=== PATIENT | female | born 1950 | race Caucasian/White ===

== ENCOUNTER 2019-03-21 01:56 | Inpatient (IN) | payer OTHER ==
[~2019-03-21] VITALS: Ht 170.2 cm; Wt 71.7 kg
[2019-03-21] VITALS (7 sets, daily range): BP systolic 143–212; BP diastolic 63–130
[~2019-03-21 01:56] MED LIST: ALPRAZOLAM1 M1 PO; AMBIEN CR 6.26.25 MG; AMBIEN CR 6.26.25 MG PO; AMITIZA 24 MCG24 MC1 PO; AZOR 10-40 MG1 EACH PO; BYSTOLIC10 MG PO; CEFDINIR300 MG PO; CLONIDINE HCL0.2 M2 PO; CYMBALTA30 MG PO; CYMBALTA60 MG PO; CYTOMEL 25 MCG25 MC1; ELMIRON PO; FIORICET PO; GABAPENTIN100 MG PO; HYDROCHLOROTHIA25 M1 PO; KLONOPIN1 MG; LABETALOL 100100 MG PO; LISINOPRIL20 MG PO; LUNESTA1 MG; MACROBID 100 M100 M1 PO; MOTRIN 600 MG600 M1 OR; NEXIUM40 MG PO; NORCO 5-325 TA1 EACH PO; PHENAZOPYRIDIN100 M1 PO; PHENERGAN 25 MG25 M1 PO; PHENERGAN12.5 M1 RC; PHENERGAN25 M2 RC; PHENERGAN25 M2 RE; RESTASIS1 EACH OP; SIMVASTATIN80 MG PO; TESSALON PERLE100 MG PO; TRAMADOL 50 MG50 MG PO; TYLENOL325 MG PO; ULTRAM 50MG TAB50 MG PO; XANAX 1 MG TABLE1 MG PO; ZOFRAN ODT4 MG PO
[2019-03-21 02:45] LABS: ABSOLUTE NEUTROPHILS 3.5 thou/uL (1.4-8.2); BASOPHILS 0.4 % (0.0-2.0); EOSINOPHILS 3.3 % (0.0-3.0); HEMOGLOBIN 14.2 gm/dL (12.0-15.0); LYMPHOCYTES 35.7 % (24.0-44.0); MCH 30.4 pg (26.0-34.0); MCHC 34.5 g/dL (28.0-37.0); MCV 88.2 fL (80.0-100.0); MONOCYTES 10.6 % (1.0-8.0); PLATELET COUNT 242 thou/uL (150-400); RBC 4.66 mil/uL (4.20-5.00); RDW 13.7 % (10.5-14.5)
[2019-03-21 02:47] LABS: CALCIUM 10.7 mg/dL (8.5-10.1); POTASSIUM 3.1 mmol/L (3.5-5.1)
[2019-03-21 02:53] LABS: ALBUMIN 4.8 g/dL (3.4-5.0); TOTAL BILIRUBIN 0.5 mg/dL (<0.1-1.0); TOTAL PROTEIN 9.3 g/dL (6.4-8.2)
[2019-03-21 04:08] LABS: URINE BILIRUBIN NEGATIVE (Negative); URINE BLOOD TRACE (Negative); URINE CLARITY CLEAR; URINE COLOR YELLOW; URINE GLUCOSE-RANDOM* NEGATIVE (Negative); URINE KETONES NEGATIVE (Negative); URINE LEUKOCYTES NEGATIVE (Negative); URINE NITRITE NEGATIVE (Negative); URINE PROTEIN (DIPSTICK) TRACE (Negative); URINE SPECIFIC GRAVITY 1.015 (1.005-1.035); URINE UROBILINOGEN 0.2 E.U./dl (0.2-1.0)
--- NOTE | 2019-03-21 18:39 | NUR ---
PT ARRIVED TO UNIT FROM ED DURING SHIFT CHANGE. PT IS ALERT AND ORIENTED X4, MONITORED ON TELEL AND ABLE TO MAINTAIN 02 SAT >90 ON RA. DENIES PAIN AND SOA. EVEN NON LABORED BREATHING. PATIENT ABLE TO EAT AND DENIES N/V. ASSESSMENT CHARTED. BP ELEVATED. ON RECHECK BEFORE CURTAIN INSPECTOR BP WAS RESOLVED. PT HAS BEEN UPDATED ON POC, DENIES ANY FURTHER QUESTIONS OR CONCERNS AT THIS TIME. WILL CONTINUE TO MOITOR.
--- NOTE | 2019-03-22 02:13 | NUR ---
patient aox4 make needs known. patient requested pain meds and c/o insomnia. called dr. home morales ambaiden and tylenol. patient denied nausea and vomit. patient ambulates with steady gaits to the bathroom. patient is contient this shift. patient in bed asleep at this time breathing regular and unlaboured.
[2019-03-22 04:26] LABS: HEMATOCRIT 40.1 % (37.0-47.0); HEMOGLOBIN 13.6 gm/dL (12.0-15.0); MCH 30.3 pg (26.0-34.0); MCV 89.2 fL (80.0-100.0); PLATELET COUNT 197 thou/uL (150-400); RBC 4.49 mil/uL (4.20-5.00); RDW 13.8 % (10.5-14.5); WBC 4.6 thou/uL (4.0-11.0)
[2019-03-22 04:27] VITALS: BP 202/100
[2019-03-22 04:37] LABS: CALCIUM 9.4 mg/dL (8.5-10.1); CREATININE 0.8 mg/dL (0.6-1.0); MAGNESIUM 1.8 mg/dL (1.8-2.4)
[2019-03-22 06:14] LABS: ABSOLUTE NEUTROPHILS 2.5 thou/uL (1.4-8.2)
[2019-03-22 06:15] LABS: PLATELET ESTIMATE NORMAL
[2019-03-22 08:34] VITALS: BP 192/126
[2019-03-22] MEDS ORDERED: CARVEDILOL25 MG PO (13:36)
[2019-03-22] MEDS ORDERED: ZOFRAN 4 MG ORAL4 MG DISSOLVE (13:36)
[2019-03-22] MEDS ORDERED: CLONIDINE HCL0.3 M3 PO (13:36)
[2019-03-22] MEDS ORDERED: BENAZEPRIL HCL20 MG PO (13:36)
[2019-03-22] MEDS ORDERED: K-DUR 20 MEQ T20 MEQ PO (13:36)
--- NOTE | 2019-03-22 13:50 | NUR ---
PT ADMITTED RELATED TO N/V, HIGH BLOOD PRESSURE. CM REVIEWED CHART AND SPOKE WITH CARE TEAM. CM MET WITH PT AT BEDSIDE THIS DAY. PT IS A&O X4. CM ROLE INTRODUCED. PT INDICATED HE LIVES IN A HOUSE WITH HER SPOUSE WITH NO STEPS TO ENTER AND 6 STEPS INSIDE. PT INDICATED SHE HAD BEEN INDEPENDENT WITH GAIT AND [employer]LS [employer]EL[employer]. PT INDICATED THAT SHE HAD NO HH OR DME HX. PT INDICATED THAT SHE PLANS TO RETURN HOME ONCE MEDICALLY STABLE. CARE TEAM INDICATED AMANDA PT WOULD LIKELY BE MEDICALLY STABLE TO DC HOME THIS DAY WITH NO NEEDS. PT IS TO DISCHARGE HOME WITH NO NEEDS. NO OTHER CM INTERVENTION INDICATED AT THIS TIME CASE CLOSED.
[2019-03-22 16:36] VITALS: BP 121/66
--- NOTE | 2019-03-22 16:46 | NUR ---
ASSUMED CARE OF PT AT APPROX 0700. PT IS ALERT AND ORIENTED X4, MONITORED ON TELE AND ABLE TO MAINTAIN 02 SAT >90 ON RA. DENIES PAIN AND SOA. EVEN NON LABORED BREATHING. ASSESSMENT CHARTED. PT BP IS ELEVATED PT EXPRESSED SHE WOULD LIKE TO BE TAKING HER REGULAR HOME BP MEDICATIONS. NOTIFIED MD, RECIEVED ORDERS FOR HOME BP MEDICATIONS. BP RESOLVED AND WITHIN NORMAL LIMITS AFTER ADMINISTRATION OF MEDICATIONS. RECIEVED ORDER FOR DC. NOTIFIED PT AND UPDATED PT ON DISCHARGE INSTRUCTIONS. NEW RX GIVEN TO PT WITH EDUCATION. PT DENIES ANY FURTHER QUESTIONS OR CONCERNS AND HAS POC GOAL TO DC TO HOME.
[2019-03-22 17:20] VITALS: BP 121/66
== END 2019-03-22 18:07 | disposition home or self-care (01) | DRG 305 ==
LOC: ER 01:56 → EROBS 05:33 → 4W 05:33 → ENTRNSPT 03-22 17:41 → 4W 03-22 18:07
PROVIDERS: Emergency Medicine; Nurse Practitioner; ADMIT Internal Medicine
DX: I16.0 Hypertensive urgency (principal); I10 Essential (primary) hypertension; Z96.0 Presence of urogenital implants; K21.9 Gastro-esophageal reflux disease without esophagitis; F41.9 Anxiety disorder, unspecified; T36.8X5A Adverse effect of other systemic antibiotics, initial encounter; E87.6 Hypokalemia; E83.42 Hypomagnesemia; K58.9 Irritable bowel syndrome, unspecified; K57.90 Diverticulosis of intestine, part unspecified, without perforation or abscess without bleeding; Z87.442 Personal history of urinary calculi; Z88.8 Allergy status to other drugs, medicaments and biological substances; Y92.89 Other specified places as the place of occurrence of the external cause; Z90.5 Acquired absence of kidney; R11.2 Nausea with vomiting, unspecified
CPT/HCPCS: 10045